=== PATIENT | female | born 1975 ===

== ENCOUNTER 2017-03-22 09:48 | Emergency (ER) | payer OTHER ==
--- NOTE | 2017-03-22 10:35 | ED PDOC ---
HPI: Abdomen Chief Complaint (Provider): Lower Abdominal Pain History Per: Patient History/Exam Limitations: no limitations Onset/Duration Of Symptoms: Days (2) Outside of [place] travel?: No Current Symptoms Are (Timing): Still Present Severity: Moderate Pain Scale Rating Of: 7 Location Of Pain/Discomfort: RLQ, LLQ, Suprapubic Quality Of Discomfort: "Pain" Associated Symptoms: Constipation. denies: Fever, Chills, Nausea, Vomiting, Diarrhea, Back Pain Exacerbating Factors: Walking Last Bowel Movement: Yesterday (small) Last Menstral Period: 03/05 : 3 Para: 3 ( x3) Miscarriage: 0 <Lyndon Echeverria - Last Filed: 03/22/17 13:09> <Annamaria Santana - Last Filed: 03/22/17 13:54> Time Seen by Provider: 03/22/17 10:07 Chief Complaint (Nursing): Abdominal Pain Additional Complaint(s): 41 yo F w/o PMHx presents to ED w new onset lower abdominal pain for previous 2 days. She describes pain as a first time occurrence, 03/21 - , located b/l lower abdomen, and worsens when standing for long periods of time. No known improving factors, other than rest. Her LMP was 03/05, with heavier bleeding during first two days, lasting in total for two weeks without significant pain, and resolving on/around 03/18. Had similar increased bleeding during previous month of January, otherwise she claims to have previously never experienced abnormal periods. She also adds having smaller than normal BMs previous two days , and none thus far today. Otherwise, pt denies any fevers/chills, nausea, vomiting, diarrhea, hematuria at the moment, dysuria, or flank pain. (Lyndon Echeverria) Past Medical History - Family History Family History: States: No Known Family Hx <Lyndon Echeverria - Last Filed: 03/22/17 13:09> <Annamaria Santana - Last Filed: 03/22/17 13:54> Vital Signs: Last Vital Signs Temp 97.6 F 03/22/17 13:25 Pulse 78 03/22/17 13:25 Resp 20 03/22/17 13:25 BP 128/78 03/22/17 13:25 Pulse Ox 98 03/22/17 13:25 - Allergies Allergies/Adverse Reactions: Allergies Allergy/AdvReac Type Severity Reaction Status Date / Time No Known Allergies Allergy Verified 03/22/17 10:05 Review of Systems ROS Statement: Except As Marked, All Systems Reviewed And Found Negative (see HPI) <Lyndon Echeverria - Last Filed: 03/22/17 13:09> Physical Exam - Reviewed Nursing Documentation Reviewed: Yes Vital Signs Reviewed: Yes - Physical Exam Appears: Positive for: Non-toxic, No Acute Distress Head Exam: Positive for: ATRAUMATIC, NORMOCEPHALIC Skin: Positive for: Normal Color, Warm, Dry Eye Exam: Positive for: EOMI, PERRL Neck: Positive for: Normal, Painless ROM Cardiovascular/Chest: Positive for: Regular Rate, Rhythm. Negative for: Edema Respiratory: Positive for: Normal Breath Sounds. Negative for: Stridor, Wheezing, Respiratory Distress Gastrointestinal/Abdominal: Positive for: Bowel Sounds (normal), Soft, Tenderness (RLQ, LLQ, suprapubic) Back: Positive for: Other (b/l paraspinal tenderness). Negative for: L CVA Tenderness, R CVA Tenderness Extremity: Positive for: Normal ROM. Negative for: Pedal Edema, Calf Tenderness Neurologic/Psych: Positive for: Alert, driver merchandiser II-XII, Oriented <Lyndon Echeverria - Last Filed: 03/22/17 13:09> - Laboratory Results Result Diagrams: 03/22/17 10:46 03/22/17 10:46 - ECG O2 Sat by Pulse Oximetry: 98 - Progress Re-evaluation Time: 12:00 Condition: Re-examined, Improved <Lyndon Echeverria - Last Filed: 03/22/17 13:09> - Laboratory Results Result Diagrams: 03/22/17 10:46 03/22/17 10:46 <Annamaria Santana - Last Filed: 03/22/17 13:54> - Progress ED Course And Treament: 41 yo F w/o PMHx presents to ED w new onset lower abdominal pain for previous 2 days -CBC -CMP -Lipase -UA -Upreg -U/C -Transvaginal U/S -Toradol 30mg IVP x1 (Lyndon Echeverria) Medical Decision Making <Lyndon Echeverria - Last Filed: 03/22/17 13:09> <Annamaria Santana - Last Filed: 03/22/17 13:54> Medical Decision Making: Patient was seen by resident and then evaluated by me. Pain resolved after toradol. Soft NT/ND abdomen. Pelvic ultrasound was negative. Labs reviewed and grossly normal, including negative . Instructed on the importance of following up with metal fence erector (Annamaria Santana) Disposition - Disposition Disposition: Routine/Home <Lyndon Echeverria - Last Filed: 03/22/17 13:09> - Disposition Disposition: Routine/Home Disposition Time: 12:43 <Annamaria Santana - Last Filed: 03/22/17 13:54> - Clinical Impression Clinical Impression: Abdominal cramps - Disposition Referrals: Moose High MD [Staff Provider] - Condition: FAIR Additional Instructions: Follow up with PMD within 2 days. Return to ED if condition worsens. Follow- up with metal fence erector for regular screenings.
[2017-03-22 11:02] LABS: RBC URINE 1 /hpf (0-3); URINE BACTERIA FEW (<OCC); URINE BILIRUBIN NEGATIVE (NEGATIVE); URINE BLOOD SMALL (NEGATIVE); URINE COLOR YELLOW (YELLOW); URINE GLUCOSE (UA) NEG (Normal); URINE KETONE NEGATIVE (NEGATIVE); URINE LEUKOCYTE ESTERASE SMALL Leu/uL (Negative); URINE PROTEIN NEGATIVE (NEGATIVE); URINE UROBILINOGEN 0.2-1.0 mg/dL (0.2-1.0); WBC URINE 1 /hpf (0-5)
[2017-03-22 11:03] LABS: BASO # 0.1 K/uL (0.0-0.2); BASO % 1.4 % (0.0-2.0); EOS # 0.1 K/uL (0.0-0.7); EOS % 1.7 % (0.0-4.0); HEMATOCRIT 38.2 % (34.0-47.0); LYMPH # 1.2 K/uL (1.0-4.3); LYMPH % 26.6 % (20.0-40.0); MEAN CELL VOLUME 90.2 fl (81.0-99.0); MEAN CORPUSCULAR HEMOGLOBIN 30.8 pg (27.0-31.0); MEAN CORPUSCULAR HGB CONC 34.1 g/dL (33.0-37.0); MONO # 0.4 K/uL (0.0-0.8); MONO % 7.9 % (0.0-10.0); NEUT # 2.9 K/uL (1.8-7.0); NEUT % 62.4 % (50.0-75.0); NRBC % 0.2 % (0.0-0.0); RED CELL DISTRIBUTION WIDTH 13.7 % (11.5-14.5); WHITE BLOOD COUNT 4.7 K/uL (4.8-10.8)
[2017-03-22 11:15] LABS: ALB/GLOB RATIO 1.3 (1.0-2.1); ALKALINE PHOSPHATASE 61 U/L (38-126); ALT/SGPT 30 U/L (9-52); AST/SGOT 24 U/L (14-36); BILIRUBIN,TOTAL 0.4 mg/dl (0.2-1.3); BLOOD UREA NITROGEN 11 mg/dl (7-17); CALCIUM 8.9 mg/dL (8.4-10.2); CARBON DIOXIDE 25 mmol/L (22-30); CHLORIDE 103 mmol/L (98-107); GFR AFRICAN-AMERICAN > 60; GLUCOSE,RANDOM 92 mg/dL (65-105); LIPASE 123 U/L (23-300); POTASSIUM 4.1 MMOL/L (3.6-5.0); SODIUM 138 mmol/l (132-148); TOTAL PROTEIN 7.5 G/DL (6.3-8.2)
[2017-03-22 11:21] VITALS: RESP 20
[2017-03-22 11:23] VITALS: O2SAT 98
--- NOTE | 2017-03-22 12:40 | US ---
HISTORY: abd pain COMPARISON: None available. TECHNIQUE: Transabdominal and transvaginal FINDINGS: UTERUS: Measures 9.3 x 5.5 x 4.8 cm. Normal in size and appearance. No fibroid or other mass lesion seen. ENDOMETRIUM: Measures 12 mm in diameter. Unremarkable. CERVIX: No cervical abnormality identified. RIGHT OVARY: Measures 3.4 x 2.8 x 1.6 cm. No solid mass. Normal flow. LEFT OVARY: Measures 3.2 x 2.5 x 1.5 cm. No solid mass. Normal flow. FREE FLUID: Small amount of fluid seen in cul-de-sac. OTHER FINDINGS: None. IMPRESSION: Unremarkable pelvic ultrasound examination.
[2017-03-22 13:44] VITALS: BP 128/78; PULSE 78; TEMP 97.6
== END 2017-03-22 13:44 | disposition home or self-care (01) ==
LOC: H.ER 09:48
DX: R10.31 Right lower quadrant pain (principal)